=== PATIENT | male | born 1940 | race Caucasian/White ===

== ENCOUNTER 2020-08-21 15:44 | Emergency (ER) | payer OTHER ==
--- OUTSIDE RECORDS SUMMARY | 2020-08-21 15:48 | XMS REPORT | Continuity of Care Document ---
:1940 Author Organization [facility] t Address [address] [place] [address] Care Team Providers Name Role Phone Devon Zeuselybella Primary Care Physician CHAPO VALENTINO Attending Clinician Unavailable CHAPO VALENTINO Admitting Clinician Unavailable Payers Payer Name Policy Type Policy Effective Date Expiration Date Sour ce Number CIGNA MEDICARECIGNA [id number] 2019 MD [facility] MEDICARE [id number] are Problems Condition Condition Condition Status Onset Resolution Last Treating Co mments Source Name Details Category Date Date Treatment Clinician Date Essential Essential Disease Active 2016-[address] [facility] hypertensi hypertensi 04-15 Jazz kes - on on 00:00: Medical 00 [place] 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[address] [facility] [address] diabetes diabetes 08 kes - mellitus mellitus 00:00: Medica l without without 00 Center complicati complicati on on Acute Acute Disease Active 2016-[address] [facility] [address] postoperat postoperat 08 Jazz kes - pepper pain pepper pain 00:00: Medica l 00 Center Status Status Disease Active 2016-[address] [facility] [address] post post 04-14 kes - cardiac cardiac 00:00: Medical surgery surgery 00 Center Acute Acute Disease Active 2016-[address] [facility] pulmonary pulmonary 04-14 [facility] - insufficie insufficie 00:00: Il dical ncy ncy 00 Center following following thoracic thoracic surgery surgery Hypertensi Hypertensi Disease Active 2016-[address] ve urgency ve urgency 04-14 Jazz kes - 00:00: Medical 00 [place] Acute Acute Disease Active 2016-[address] [facility] [address] blood loss blood loss 04-14 Jazz kes - anemia anemia 00:00: Medical 00 [place] SIRS SIRS Disease Active 2016-[address] [facility] (systemic (systemic 04-14 Luke s - inflammato inflammato 00:00: Me dical ry ry 00 [place] response response syndrome) syndrome) Hypertensi Hypertensi Disease Active [facility] on on [facility] 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 - occlusion occlusion [facility] Diverticul Diverticul Disease Active [facility] itis itis [facility] Allergies, Adverse Reactions, Alerts This patient has no known allergies or adverse reactions. Family History Family Member Diagnosis Comments Start Date Stop Date Source Natural mother Diabetes [facility] Natural mother Heart disease [facility] Social History Social Habit Start Date Stop Date Quantity Comments Source Exposure to Not sure MD Vick SARS-CoV-2 (event) Sex Assigned At [facility] Tobacco use and 2017-02-13 2017-02-13 Never used [facility] - exposure 00:00:00 00:00:[address] [facility] Alcohol intake 2017-02-13 2017-02-13 [facility] - 00:[facility] 00:00:00 of alcohol [facility] (finding) Alcohol Comment 2017-01-17 2017-01-[address] Jazz kes - 00:00:00 00:00:00 [facility] History of 1993-04-[address] [facility] Josh [facility] - tobacco use 00[facility]00:00 [facility] Status Start Date Stop Date Source Former smoker 2017-02-13 00:00:00 2017-02-13 00:00:[address] [facility] [facility] - [facility] Medications Ordered Filled Start Stop Current Ordering Indication Dosage Frequency Signature Comments Components Source Medication Medication Date Date Medication? Clinician (SIG) Name Name metFORMIN 2016-04 Yes 1000mg Take 1,[address] (GLUCOPHAGE 1-13 mg by Lukes - ) 1000 MG 12:28: mouth 2 Medic al tablet 12 (two) Center times daily with breakfast and dinner. lisinopril 2016-04 Yes 10mg QD Take [address] (PRINIVIL,Z 1-13 by mouth Luke s - ESTRIL) 10 12:28: daily. Medic al MG tablet 12 [place] metoprolol 2016-04 Yes 25mg Q.5D Take [address] (LOPRESSOR) 1-13 by mouth 2 Jazz kes - 25 MG 12:28: (two) Medical tablet 12 times Center daily. cyanocobala 2016-04 Yes 1000ug QD Take 1,[address] min 1000 1-13 mcg by Lukes - MCG tablet 12:28: mouth Medica l 12 daily. [place] insulin 2016-04 Yes 14U Q.5D Inject 14 [facility] glargine 1-13 Units [facility]ukes - (LANTUS) 00:00: subcutaneo Med ical 100 unit/mL 00 usly 2 Center injection (two) times daily. Cyclobenzap Cyclobenzap Yes Tammie [address] rine HCl rine HCl [facility] to 2 hours [facility] - before [facility] Budesonide- Budesonide- Yes Tammie [address] Formoterol Formoterol [facility] - Fumarate Fumarate [facility] Tamsulosin Tamsulosin Yes Tammie [address] HCl HCl [facility] Gabapentin Gabapentin Yes Tammie [address] Millender [facility] Aspir-81 Aspir-81 Yes Tammie [address] [facility] - [facility] Clinics Accu-Chek Accu-Chek Yes Tammie as [facility] Tea Plus Tea Plus [facility] directed [facility] Atorvastati Atorvastati Yes Tammie [address] [facility] n Calcium n Calcium [facility] Insulin Insulin Yes Tammie as [facility] Glargine Glargine Millender directed [facility] - [facility] Diclofenac Diclofenac Yes Tammie [address] Sodium Sodium [place] [facility] - [facility] Clinics Empaglifloz Empaglifloz Yes Tammie [address] [facility] [place] [facility] - [facility] Phosphate Phosphate Yes Tammie not [facility] Enema Enema Millender defined [facility] Metformin Metformin Yes Tammie [address] HCl HCl [place] with a [facility] - meal [facility] Albuterol Albuterol Yes Tammie [address] Sulfate HFA Sulfate HFA Millender needed [facility] Procedures This patient has no known procedures. Encounters Start End Encounter Admission Attending Care Care Encounter Source Date/Time Date/Time Type Type Clinicians Facility Department ID 2020-07-05 2020-07-05 Outpatient [facility] [id number] [facility] 2020-01-14 2020-01-14 Outpatient [facility] [id number] [facility] 2020-01-11 2020-01-11 Outpatient [facility] [id number] [facility] 2020-01-08 2020-01-08 Outpatient [facility] [id number] [facility] 2019-06-30 2019-06-30 [facility] [id number] 09:40:00 09:40:00 [facility] 2019-05-21 2019-05-21 Outpatient Fariha Nieto [id number] 15:15:00 15:15:00 [facility] ent Clinics Results Test Description Test Time Test Comments Results Result Comments Source SURGICAL SPECIMENS 2018-01-11 11:00:00 --RUN DATE: 01/11/18 [facility] *LIVE* PAGE 1 RUN TIME: 1100 Specimen Inquiry RUN USER: INTERFACE --PATIENT: SHEFALI MA LOC: OzzySLAVA U #: [id number] AGE/SX: 77/M ROOM: RE01/09/18[facility] DR: Pedro May MD : 42 BED: DIS: STATUS: [place] TLOC: -- SPEC #: [id number] RECD: 01/09/18 STATUS: VERONICA JOSEPH #: [id number] EDI: 01/09/18 [facility] DR: Pedro May MD ENTERED: 01/11/18 SP TYPE: SURG SPEC OTHR DR: ORDERED: GM LEVEL 4 CODES: [id number] - PLEURAL FLUID PROCEDURES: GM LEVEL 4 (Incomplete) TISSUES: 1. PLEURAL FLUID, NOS - Pleural fluid, left, cytology FINAL DIAGNOSIS Pleural fluid, left, cytology, cytospin smears and cell block: No malignancy seen. GROSS AND MICROSCOPIC GROSS EXAMINATION: Received is 12 cc of red pleural fluid for cytologic examination. MICROSCOPIC EXAMINATION: The left pleural fluid cell block and cytospin smears reveal abundant amorphous material and scattered lymphoid cells with some reactive mesothelial cells. No evidence of malignancy is identified. POST-OP DIAGNOSIS Left pleural effusion PRE-OP DIAGNOSIS Left pleural effusion -- Signed SIGNATURE ON FILE Margaret Rodrigues MD 01/11/18 1100 --- END OF REPORT POCT-GLUCOSE METER 2017-02-18 08:13:00 Test Item Value Reference Range Interpretation Comme nts POC-GLUCOSE METER ([facility] (test 334 mg/dL 70-110 H Notified SHENA TAYLOR/TESTED AT [facility] code = 1538) [address] [facility] [place] [address] [id number] 06:53:00 Test Item Value Reference Range Interpretation Comments PHOSPHORUS (BEAKER) (test code = 3.2 mg/dL 2.3-4.7 604) [id number] 06:53:00 Test Item Value Reference Range Interpretation Comments MAGNESIUM (BEAKER) (test code = 1.6 mg/dL 1.6-2.6 627) BASIC METABOLIC [id number] 06:53:00 Test Item Value Reference Range Interpretation Comments SODIUM (BEAKER) 138 meq/L 136-145 (test code = 381) POTASSIUM (BEAKER) 4.2 meq/L 3.5-5.1 (test code = 379) CHLORIDE (BEAKER) 100 meq/L 98-107 (test code = 382) CO2 (BEAKER) (test 30 meq/L 22-29 H code = 355) BLOOD UREA NITROGEN 25 mg/dL 7-21 H (BEAKER) (test code = 354) CREATININE (BEAKER) 1.07 mg/dL 0.57-1.25 (test code = 358) GLUCOSE RANDOM 186 mg/dL 70-105 H (BEAKER) (test code = 652) CALCIUM (BEAKER) 9.8 mg/dL 8.4-10.2 (test code = 697) EGFR (BEAKER) (test 67 mL/min/1.73 ESTIMA IDALIA GFR IS code = 1092) sq m NOT ACCURATE CREATININE CLEARANCE IN PREDICTING GLOMERULAR FILTRATION RATE . ESTIMATED GFR I S NOT APPLICABLE FOR DIALYSIS PATIEN TS. CALCIUM, [id number] 06:41:00 Test Item Value Reference Range Interpretation Comments CALCIUM IONIZED (BEAKER) (test 1.17 mmol/L 1.12-1.27 code = 698) PH, BLOOD (BEAKER) (test code = 7.35 1810) CBC W/PLT COUNT & AUTO [id number] 06:23:00 Test Item Value Reference Range Interpretation Comments WHITE BLOOD CELL COUNT (BEAKER) 7.9 K/ L 3.5-10.5 (test code = 775) RED BLOOD CELL COUNT (BEAKER) 3.35 M/ L 4.63-6.08 L (test code = 761) HEMOGLOBIN (BEAKER) (test code = 9.2 GM/DL 13.7-17.5 L 410) HEMATOCRIT (BEAKER) (test code = 29.2 % 40.1-51.0 L 411) MEAN CORPUSCULAR VOLUME (BEAKER) 87.2 fL 79.0-92.2 (test code = 753) MEAN CORPUSCULAR HEMOGLOBIN 27.5 pg 25.7-32.2 (BEAKER) (test code = 751) MEAN CORPUSCULAR HEMOGLOBIN CONC 31.5 GM/DL 32.3-36.5 L (BEAKER) (test code = 752) RED CELL DISTRIBUTION WIDTH 12.9 % 11.6-14.4 (BEAKER) (test code = 412) PLATELET COUNT (BEAKER) (test 333 K/CU MM 150-450 code = 756) MEAN PLATELET VOLUME (BEAKER) 9.4 fL 9.4-12.4 (test code = 754) NUCLEATED RED BLOOD CELLS 0 /100 WBC 0-0 (BEAKER) (test code = 413) NEUTROPHILS RELATIVE PERCENT 60 % (BEAKER) (test code = 429) LYMPHOCYTES RELATIVE PERCENT 24 % (BEAKER) (test code = 430) MONOCYTES RELATIVE PERCENT 12 % (BEAKER) (test code = 431) EOSINOPHILS RELATIVE PERCENT 3 % (BEAKER) (test code = 432) BASOPHILS RELATIVE PERCENT 1 % (BEAKER) (test code = 437) NEUTROPHILS ABSOLUTE COUNT 4.74 K/ L 1.78-5.38 (BEAKER) (test code = 670) LYMPHOCYTES ABSOLUTE COUNT 1.90 K/ L 1.32-3.57 (BEAKER) (test code = 414) MONOCYTES ABSOLUTE COUNT (BEAKER) 0.91 K/ L 0.30-0.82 H (test code = 415) EOSINOPHILS ABSOLUTE COUNT 0.22 K/ L 0.04-0.54 (BEAKER) (test code = 416) BASOPHILS ABSOLUTE COUNT (BEAKER) 0.07 K/ L 0.01-0.08 (test code = 417) IMMATURE GRANULOCYTES-RELATIVE 1 % 0-1 PERCENT (BEAKER) (test code = 2801) POCT-GLUCOSE [id number] 22:13:00 Test Item Value Reference Range Interpretation Comments POC-GLUCOSE METER 290 mg/dL 70-[address] [facility] [facility] (test code = GEOVANNY Ca [facility] 1538) [address] POCT-GLUCOSE [id number] 17:29:00 Test Item Value Reference Range Interpretation Comments POC-GLUCOSE METER 276 mg/dL 70-[address] [facility] 6720 [facility] (test code = GEOVANNY Ca [facility] 1538) [address] POCT-GLUCOSE [id number] 12:39:00 Test Item Value Reference Range Interpretation Comments POC-GLUCOSE METER 259 mg/dL 70-[address] [facility] 6720 (BEAKER) (test code = [place] 1538) [address] POCT-GLUCOSE [id number] 08:24:00 Test Item Value Reference Range Interpretation Comments POC-GLUCOSE METER 298 mg/dL 70-[address] [facility] 6720 (BEAKER) (test code = GEOVANNY Ca [facility] 1538) [address] [id number] 07:50:00 Test Item Value Reference Range Interpretation Comments PHOSPHORUS (BEAKER) (test code = 3.8 mg/dL 2.3-4.7 604) [id number] 07:50:00 Test Item Value Reference Range Interpretation Comments MAGNESIUM (BEAKER) (test code = 1.6 mg/dL 1.6-2.6 627) BASIC METABOLIC [id number] 07:50:00 Test Item Value Reference Range Interpretation Comments SODIUM (BEAKER) 141 meq/L 136-145 (test code = 381) POTASSIUM (BEAKER) 3.9 meq/L 3.5-5.1 (test code = 379) CHLORIDE (BEAKER) 100 meq/L 98-107 (test code = 382) CO2 (BEAKER) (test 29 meq/L 22-29 code = 355) BLOOD UREA NITROGEN 26 mg/dL 7-21 H (BEAKER) (test code = 354) CREATININE (BEAKER) 1.13 mg/dL 0.57-1.25 (test code = 358) GLUCOSE RANDOM 159 mg/dL 70-105 H (BEAKER) (test code = 652) CALCIUM (BEAKER) 9.7 mg/dL 8.4-10.2 (test code = 697) EGFR (BEAKER) (test 63 mL/min/1.73 ESTIMA IDALIA GFR IS code = 1092) sq m NOT ACCURATE CREATININE CLEARANCE IN PREDICTING GLOMERULAR FILTRATION RATE . ESTIMATED GFR I S NOT APPLICABLE FOR DIALYSIS PATIEN TS. CALCIUM, [id number] 07:29:00 Test Item Value Reference Range Interpretation Comments CALCIUM IONIZED (BEAKER) (test 1.15 mmol/L 1.12-1.27 code = 698) PH, BLOOD (BEAKER) (test code = 7.32 1810) CBC W/PLT COUNT & AUTO [id number] 07:28:00 Test Item Value Reference Range Interpretation Comments WHITE BLOOD CELL COUNT (BEAKER) 6.4 K/ L 3.5-10.5 (test code = 775) RED BLOOD CELL COUNT (BEAKER) 3.26 M/ L 4.63-6.08 L (test code = 761) HEMOGLOBIN (BEAKER) (test code = 9.1 GM/DL 13.7-17.5 L 410) HEMATOCRIT (BEAKER) (test code = 28.8 % 40.1-51.0 L 411) MEAN CORPUSCULAR VOLUME (BEAKER) 88.3 fL 79.0-92.2 (test code = 753) MEAN CORPUSCULAR HEMOGLOBIN 27.9 pg 25.7-32.2 (BEAKER) (test code = 751) MEAN CORPUSCULAR HEMOGLOBIN CONC 31.6 GM/DL 32.3-36.5 L (BEAKER) (test code = 752) RED CELL DISTRIBUTION WIDTH 13.2 % 11.6-14.4 (BEAKER) (test code = 412) PLATELET COUNT (BEAKER) (test 320 K/CU MM 150-450 code = 756) MEAN PLATELET VOLUME (BEAKER) 9.6 fL 9.4-12.4 (test code = 754) NUCLEATED RED BLOOD CELLS 0 /100 WBC 0-0 (BEAKER) (test code = 413) NEUTROPHILS RELATIVE PERCENT 53 % (BEAKER) (test code = 429) LYMPHOCYTES RELATIVE PERCENT 31 % (BEAKER) (test code = 430) MONOCYTES RELATIVE PERCENT 12 % (BEAKER) (test code = 431) EOSINOPHILS RELATIVE PERCENT 4 % (BEAKER) (test code = 432) BASOPHILS RELATIVE PERCENT 1 % (BEAKER) (test code = 437) NEUTROPHILS ABSOLUTE COUNT 3.42 K/ L 1.78-5.38 (BEAKER) (test code = 670) LYMPHOCYTES ABSOLUTE COUNT 1.97 K/ L 1.32-3.57 (BEAKER) (test code = 414) MONOCYTES ABSOLUTE COUNT (BEAKER) 0.74 K/ L 0.30-0.82 (test code = 415) EOSINOPHILS ABSOLUTE COUNT 0.24 K/ L 0.04-0.54 (BEAKER) (test code = 416) BASOPHILS ABSOLUTE COUNT (BEAKER) 0.05 K/ L 0.01-0.08 (test code = 417) IMMATURE GRANULOCYTES-RELATIVE 0 % 0-1 PERCENT (BEAKER) (test code = 2801) POCT-GLUCOSE [id number] 22:18:00 Test Item Value Reference Range Interpretation Comments POC-GLUCOSE METER 209 mg/dL 70-110 H TESTED AT [place] [address] (BEAKER) (test code = GEOVANNY Ca [facility] 1538) [address] POCT-GLUCOSE [id number] 16:58:00 Test Item Value Reference Range Interpretation Comments POC-GLUCOSE METER 205 mg/dL 70-110 H TESTED AT [place] [address] (BEAKER) (test code = DIGNANM Roby [facility] 1538) [address] POCT-GLUCOSE [id number] 12:47:00 Test Item Value Reference Range Interpretation Comments POC-GLUCOSE METER 330 mg/dL 70-110 H Notified R Justine TAYLOR/TESTED (BEAKER) (test code = AT [address] 1538) [facility] [address] POCT-GLUCOSE [id number] 08:52:00 Test Item Value Reference Range Interpretation Comments POC-GLUCOSE METER 290 mg/dL 70-110 H TESTED AT [place] [address] (BEAKER) (test code = BANNER Roby [facility] 1538) [address] [id number] 07:17:00 Test Item Value Reference Range Interpretation Comments PHOSPHORUS (BEAKER) (test code = 3.6 mg/dL 2.3-4.7 604) [id number] 07:17:00 Test Item Value Reference Range Interpretation Comments MAGNESIUM (BEAKER) (test code = 1.6 mg/dL 1.6-2.6 627) BASIC METABOLIC [id number] 07:17:00 Test Item Value Reference Range Interpretation Comments SODIUM (BEAKER) 138 meq/L 136-145 (test code = 381) POTASSIUM (BEAKER) 4.3 meq/L 3.5-5.1 (test code = 379) CHLORIDE (BEAKER) 101 meq/L 98-107 (test code = 382) CO2 (BEAKER) (test 28 meq/L 22-29 code = 355) BLOOD UREA NITROGEN 28 mg/dL 7-21 H (BEAKER) (test code = 354) CREATININE (BEAKER) 1.05 mg/dL 0.57-1.25 (test code = 358) GLUCOSE RANDOM 182 mg/dL 70-105 H (BEAKER) (test code = 652) CALCIUM (BEAKER) 10.0 mg/dL 8.4-10.2 (test code = 697) EGFR (BEAKER) (test 69 mL/min/1.73 ESTIMA IDALIA GFR IS code = 1092) sq m NOT ACCURATE CREATININE CLEARANCE IN PREDICTING GLOMERULAR FILTRATION RATE . ESTIMATED GFR I S NOT APPLICABLE FOR DIALYSIS PATIEN TS. CBC W/PLT COUNT & AUTO [id number] 07:11:00 Test Item Value Reference Range Interpretation Comments WHITE BLOOD CELL COUNT (BEAKER) 7.0 K/ L 3.5-10.5 (test code = 775) RED BLOOD CELL COUNT (BEAKER) 3.17 M/ L 4.63-6.08 L (test code = 761) HEMOGLOBIN (BEAKER) (test code = 8.9 GM/DL 13.7-17.5 L 410) HEMATOCRIT (BEAKER) (test code = 27.8 % 40.1-51.0 L 411) MEAN CORPUSCULAR VOLUME (BEAKER) 87.7 fL 79.0-92.2 (test code = 753) MEAN CORPUSCULAR HEMOGLOBIN 28.1 pg 25.7-32.2 (BEAKER) (test code = 751) MEAN CORPUSCULAR HEMOGLOBIN CONC 32.0 GM/DL 32.3-36.5 L (BEAKER) (test code = 752) RED CELL DISTRIBUTION WIDTH 13.1 % 11.6-14.4 (BEAKER) (test code = 412) PLATELET COUNT (BEAKER) (test 265 K/CU MM 150-450 code = 756) MEAN PLATELET VOLUME (BEAKER) 9.6 fL 9.4-12.4 (test code = 754) NUCLEATED RED BLOOD CELLS 0 /100 WBC 0-0 (BEAKER) (test code = 413) NEUTROPHILS RELATIVE PERCENT 65 % (BEAKER) (test code = 429) LYMPHOCYTES RELATIVE PERCENT 19 % (BEAKER) (test code = 430) MONOCYTES RELATIVE PERCENT 12 % (BEAKER) (test code = 431) EOSINOPHILS RELATIVE PERCENT 3 % (BEAKER) (test code = 432) BASOPHILS RELATIVE PERCENT 1 % (BEAKER) (test code = 437) NEUTROPHILS ABSOLUTE COUNT 4.50 K/ L 1.78-5.38 (BEAKER) (test code = 670) LYMPHOCYTES ABSOLUTE COUNT 1.34 K/ L 1.32-3.57 (BEAKER) (test code = 414) MONOCYTES ABSOLUTE COUNT (BEAKER) 0.86 K/ L 0.30-0.82 H (test code = 415) EOSINOPHILS ABSOLUTE COUNT 0.19 K/ L 0.04-0.54 (BEAKER) (test code = 416) BASOPHILS ABSOLUTE COUNT (BEAKER) 0.04 K/ L 0.01-0.08 (test code = 417) IMMATURE GRANULOCYTES-RELATIVE 0 % 0-1 PERCENT (BEAKER) (test code = 2801) CALCIUM, [id number] 07:10:00 Test Item Value Reference Range Interpretation Comments CALCIUM IONIZED (BEAKER) (test 1.14 mmol/L 1.12-1.27 code = 698) PH, BLOOD (BEAKER) (test code = 7.33 1810) POCT-GLUCOSE [id number] 22:05:00 Test Item Value Reference Range Interpretation Comments POC-GLUCOSE METER 208 mg/dL 70-110 H TESTED AT [place] [address] [facility] (test code = [place] Roby [facility] 1538) [address] POCT-GLUCOSE [id number] 16:47:00 Test Item Value Reference Range Interpretation Comments POC-GLUCOSE METER 285 mg/dL 70-110 H TESTED AT [place] [address] (BEAKER) (test code = [facility] 1538) [address] POCT-GLUCOSE [id number] 13:03:00 Test Item Value Reference Range Interpretation Comments POC-GLUCOSE METER 265 mg/dL 70-110 H TESTED AT [place] [address] (BEAKER) (test code = [facility] 1538) [address] POCT-GLUCOSE [id number] 08:19:00 Test Item Value Reference Range Interpretation Comments POC-GLUCOSE METER 188 mg/dL 70-[address] [facility] 6720 (BEAKER) (test code = [facility] 1538) [address] CALCIUM, [id number] 07:58:00 Test Item Value Reference Range Interpretation Comments CALCIUM IONIZED (BEAKER) (test 1.26 mmol/L 1.12-1.27 code = 698) PH, BLOOD (BEAKER) (test code = 7.29 1810) [id number] 06:44:00 Test Item Value Reference Range Interpretation Comments PHOSPHORUS (BEAKER) (test code = 3.7 mg/dL 2.3-4.7 604) [id number] 06:44:00 Test Item Value Reference Range Interpretation Comments MAGNESIUM (BEAKER) (test code = 2.0 mg/dL 1.6-2.6 627) BASIC METABOLIC [id number] 06:44:00 Test Item Value Reference Range Interpretation Comments SODIUM (BEAKER) 137 meq/L 136-145 (test code = 381) POTASSIUM (BEAKER) 4.0 meq/L 3.5-5.1 (test code = 379) CHLORIDE (BEAKER) 100 meq/L 98-107 (test code = 382) CO2 (BEAKER) (test 26 meq/L 22-29 code = 355) BLOOD UREA NITROGEN 31 mg/dL 7-21 H (BEAKER) (test code = 354) CREATININE (BEAKER) 1.35 mg/dL 0.57-1.25 H (test code = 358) GLUCOSE RANDOM 186 mg/dL 70-105 H (BEAKER) (test code = 652) CALCIUM (BEAKER) 10.2 mg/dL 8.4-10.2 (test code = 697) EGFR (BEAKER) (test 52 mL/min/1.73 ESTIMA IDALIA GFR IS code = 1092) sq m NOT ACCURATE CREATININE CLEARANCE IN PREDICTING GLOMERULAR FILTRATION RATE . ESTIMATED GFR I S NOT APPLICABLE FOR DIALYSIS PATIEN TS. CBC W/PLT COUNT & AUTO [id number] 06:22:00 Test Item Value Reference Range Interpretation Comments WHITE BLOOD CELL COUNT (BEAKER) 10.1 K/ L 3.5-10.5 (test code = 775) RED BLOOD CELL COUNT (BEAKER) 3.40 M/ L 4.63-6.08 L (test code = 761) HEMOGLOBIN (BEAKER) (test code = 9.6 GM/DL 13.7-17.5 L 410) HEMATOCRIT (BEAKER) (test code = 30.3 % 40.1-51.0 L 411) MEAN CORPUSCULAR VOLUME (BEAKER) 89.1 fL 79.0-92.2 (test code = 753) MEAN CORPUSCULAR HEMOGLOBIN 28.2 pg 25.7-32.2 (BEAKER) (test code = 751) MEAN CORPUSCULAR HEMOGLOBIN CONC 31.7 GM/DL 32.3-36.5 L (BEAKER) (test code = 752) RED CELL DISTRIBUTION WIDTH 13.3 % 11.6-14.4 (BEAKER) (test code = 412) PLATELET COUNT (BEAKER) (test 250 K/CU MM 150-450 code = 756) MEAN PLATELET VOLUME (BEAKER) 10.0 fL 9.4-12.4 (test code = 754) NUCLEATED RED BLOOD CELLS 0 /100 WBC 0-0 (BEAKER) (test code = 413) NEUTROPHILS RELATIVE PERCENT 67 % (BEAKER) (test code = 429) LYMPHOCYTES RELATIVE PERCENT 20 % (BEAKER) (test code = 430) MONOCYTES RELATIVE PERCENT 9 % (BEAKER) (test code = 431) EOSINOPHILS RELATIVE PERCENT 2 % (BEAKER) (test code = 432) BASOPHILS RELATIVE PERCENT 1 % (BEAKER) (test code = 437) NEUTROPHILS ABSOLUTE COUNT 6.77 K/ L 1.78-5.38 H (BEAKER) (test code = 670) LYMPHOCYTES ABSOLUTE COUNT 2.05 K/ L 1.32-3.57 (BEAKER) (test code = 414) MONOCYTES ABSOLUTE COUNT (BEAKER) 0.94 K/ L 0.30-0.82 H (test code = 415) EOSINOPHILS ABSOLUTE COUNT 0.22 K/ L 0.04-0.54 (BEAKER) (test code = 416) BASOPHILS ABSOLUTE COUNT (BEAKER) 0.05 K/ L 0.01-0.08 (test code = 417) IMMATURE GRANULOCYTES-RELATIVE 0 % 0-1 PERCENT (BEAKER) (test code = 2801) POCT-GLUCOSE [id number] 22:01:00 Test Item Value Reference Range Interpretation Comments POC-GLUCOSE METER 238 mg/dL 70-[address] [facility] 6720 (BEAKER) (test code = GEOVANNY MOLINA 1538) [address] POCT-GLUCOSE [id number] 17:09:00 Test Item Value Reference Range Interpretation Comments POC-GLUCOSE METER 167 mg/dL 70-110 H TESTED AT [place] [address] ([facility]) (test code = [place] 1538) [address] POCT-GLUCOSE [id number] 12:02:00 Test Item Value Reference Range Interpretation Comments POC-GLUCOSE METER 256 mg/dL 70-[address] [facility] [address] ([facility]) (test code = [place] 1538) [address] RAD, CHEST, 1 VIEW, NON [id number] 09:07:00Reason for exam:->post opShould this be performed at the bedside?->YesFINAL REPORT HISTORY : post op. Comparison: 02/13/2017 Comment: Single portable view of the chest was obtained. The cardiac silhouette size is enlarged. The patient is status post sternotomy. There is a tortuous/ectatic thoracic aorta with some widening of the mediastinum. Thereare some bibasilar likely pleural-based calcifications. No pneumothorax is seen. There is some bibasilar patchy airspace disease. There may be very small bilateral pleural effusions. There has been interval removal of the right-sided internal jugular venous catheter. Signed: Keivn Posadaseport Verified Date/Time: 02/14/2017 09:07:30 Reading Location: [facility] Diagnostic Imaging Reading Room - [place] [address] POCT-GLUCOSE [id number] 07:47:00 Test Item Value Reference Range Interpretation Comments POC-GLUCOSE METER 235 mg/dL 70-110 H TESTED AT [place] [address] ([facility]) (test code = [place] [facility] 1538) [address] CALCIUM, [id number] 05:43:00 Test Item Value Reference Range Interpretation Comments CALCIUM IONIZED ([facility]) (test 1.18 mmol/L 1.12-1.27 code = 698) PH, BLOOD ([facility]) (test code = 7.33 1810) [id number] 05:42:00 Test Item Value Reference Range Interpretation Comments PHOSPHORUS ([facility]) (test code = 2.4 mg/dL 2.3-4.7 604) [id number] 05:42:00 Test Item Value Reference Range Interpretation Comments MAGNESIUM (BEAKER) (test code = 1.9 mg/dL 1.6-2.6 627) BASIC METABOLIC [id number] 05:42:00 Test Item Value Reference Range Interpretation Comments SODIUM (BEAKER) 137 meq/L 136-145 (test code = 381) POTASSIUM (BEAKER) 4.6 meq/L 3.5-5.1 (test code = 379) CHLORIDE (BEAKER) 103 meq/L 98-107 (test code = 382) CO2 (BEAKER) (test 27 meq/L 22-29 code = 355) BLOOD UREA NITROGEN 19 mg/dL 7-21 (BEAKER) (test code = 354) CREATININE (BEAKER) 1.03 mg/dL 0.57-1.25 (test code = 358) GLUCOSE RANDOM 196 mg/dL 70-105 H (BEAKER) (test code = 652) CALCIUM (BEAKER) 9.5 mg/dL 8.4-10.2 (test code = 697) EGFR (BEAKER) (test 70 mL/min/1.73 ESTIMA IDALIA GFR IS code = 1092) sq m NOT ACCURATE CREATININE CLEARANCE IN PREDICTING GLOMERULAR FILTRATION RATE . ESTIMATED GFR I S NOT APPLICABLE FOR DIALYSIS PATIEN TS. CBC W/PLT COUNT & AUTO [id number] 05:16:00 Test Item Value Reference Range Interpretation Comments WHITE BLOOD CELL COUNT (BEAKER) 10.5 K/ L 3.5-10.5 (test code = 775) RED BLOOD CELL COUNT (BEAKER) 3.16 M/ L 4.63-6.08 L (test code = 761) HEMOGLOBIN (BEAKER) (test code = 9.1 GM/DL 13.7-17.5 L 410) HEMATOCRIT (BEAKER) (test code = 28.6 % 40.1-51.0 L 411) MEAN CORPUSCULAR VOLUME (BEAKER) 90.5 fL 79.0-92.2 (test code = 753) MEAN CORPUSCULAR HEMOGLOBIN 28.8 pg 25.7-32.2 (BEAKER) (test code = 751) MEAN CORPUSCULAR HEMOGLOBIN CONC 31.8 GM/DL 32.3-36.5 L (BEAKER) (test code = 752) RED CELL DISTRIBUTION WIDTH 13.4 % 11.6-14.4 (BEAKER) (test code = 412) PLATELET COUNT (BEAKER) (test 191 K/CU MM 150-450 code = 756) MEAN PLATELET VOLUME (BEAKER) 9.7 fL 9.4-12.4 (test code = 754) NUCLEATED RED BLOOD CELLS 0 /100 WBC 0-0 (BEAKER) (test code = 413) NEUTROPHILS RELATIVE PERCENT 74 % (BEAKER) (test code = 429) LYMPHOCYTES RELATIVE PERCENT 13 % (BEAKER) (test code = 430) MONOCYTES RELATIVE PERCENT 12 % (BEAKER) (test code = 431) EOSINOPHILS RELATIVE PERCENT 0 % (BEAKER) (test code = 432) BASOPHILS RELATIVE PERCENT 0 % (BEAKER) (test code = 437) NEUTROPHILS ABSOLUTE COUNT 7.74 K/ L 1.78-5.38 H (BEAKER) (test code = 670) LYMPHOCYTES ABSOLUTE COUNT 1.41 K/ L 1.32-3.57 (BEAKER) (test code = 414) MONOCYTES ABSOLUTE COUNT (BEAKER) 1.22 K/ L 0.30-0.82 H (test code = 415) EOSINOPHILS ABSOLUTE COUNT 0.04 K/ L 0.04-0.54 (BEAKER) (test code = 416) BASOPHILS ABSOLUTE COUNT (BEAKER) 0.04 K/ L 0.01-0.08 (test code = 417) IMMATURE GRANULOCYTES-RELATIVE 1 % 0-1 PERCENT (BEAKER) (test code = 2801) POCT-GLUCOSE [id number] 22:20:00 Test Item Value Reference Range Interpretation Comments POC-GLUCOSE METER 276 mg/dL 70-[address] [facility] [address] ([facility]) (test code = [place] [facility] 1538) [id number] POCT-GLUCOSE [id number] 16:45:00 Test Item Value Reference Range Interpretation Comments POC-GLUCOSE METER 226 mg/dL 70-[address] [facility] [address] ([facility]) (test code = [facility] 1538) [address] RAD, CHEST, 1 VIEW, NON [id number] 09:10:00while patient is intubated or has chest tubes.Reason for exam:->Acute pulmonary insufficiencyShould this be performed at the bedside?->YesFINAL REPORT HISTORY : Acute pulmonary insufficiency. Comparison: 02/12/2017 Comment: Single portable view of the chest was obtained. The cardiac silhouette size is enlarged. There has been interval removal of the endotracheal and nasogastric tubes. The remainder of the support lines and tubes are otherwise unchanged. No pneumothorax is seen. There is some pulmonary venous congestion with possible edema. There is some patchy bibasilar airspace disease which may represent atelectasis. Pneumonitis cannot be excluded. There are some bibasilar likely pleural-based calcifications.Signed: Kevin Posadaseport Verified Date/Time: 02/13/2017 09:10:34 Reading Location: [facility] Diagnostic Imaging Reading Room - [place] [address] POCT-GLUCOSE [id number] 09:00:00 Test Item Value Reference Range Interpretation Comments POC-GLUCOSE METER 138 mg/dL 70-110 H TESTED AT [place] [address] ([facility]) (test code = [place] [facility] 1538) [address] POCT-GLUCOSE [id number] 08:59:00 Test Item Value Reference Range Interpretation Comments POC-GLUCOSE METER 137 mg/dL 70-110 H TESTED AT [place] [address] ([facility] (test code = [facility] 1538) [address] CBC W/PLT COUNT & AUTO [id number] 03:48:00 Test Item Value Reference Range Interpretation Comments WHITE BLOOD CELL COUNT (BEAKER) 9.8 K/ L 3.5-10.5 (test code = 775) RED BLOOD CELL COUNT (BEAKER) 3.53 M/ L 4.63-6.08 L (test code = 761) HEMOGLOBIN (BEAKER) (test code = 10.0 GM/DL 13.7-17.5 L 410) HEMATOCRIT (BEAKER) (test code = 30.6 % 40.1-51.0 L 411) MEAN CORPUSCULAR VOLUME (BEAKER) 86.7 fL 79.0-92.2 (test code = 753) MEAN CORPUSCULAR HEMOGLOBIN 28.3 pg 25.7-32.2 (BEAKER) (test code = 751) MEAN CORPUSCULAR HEMOGLOBIN CONC 32.7 GM/DL 32.3-36.5 (BEAKER) (test code = 752) RED CELL DISTRIBUTION WIDTH 13.6 % 11.6-14.4 (BEAKER) (test code = 412) PLATELET COUNT (BEAKER) (test 209 K/CU MM 150-450 code = 756) MEAN PLATELET VOLUME (BEAKER) 9.3 fL 9.4-12.4 L (test code = 754) NUCLEATED RED BLOOD CELLS 0 /100 WBC 0-0 (BEAKER) (test code = 413) NEUTROPHILS RELATIVE PERCENT 80 % (BEAKER) (test code = 429) LYMPHOCYTES RELATIVE PERCENT 7 % (BEAKER) (test code = 430) MONOCYTES RELATIVE PERCENT 12 % (BEAKER) (test code = 431) EOSINOPHILS RELATIVE PERCENT 0 % (BEAKER) (test code = 432) BASOPHILS RELATIVE PERCENT 0 % (BEAKER) (test code = 437) NEUTROPHILS ABSOLUTE COUNT 7.87 K/ L 1.78-5.38 H (BEAKER) (test code = 670) LYMPHOCYTES ABSOLUTE COUNT 0.68 K/ L 1.32-3.57 L (BEAKER) (test code = 414) MONOCYTES ABSOLUTE COUNT (BEAKER) 1.17 K/ L 0.30-0.82 H (test code = 415) EOSINOPHILS ABSOLUTE COUNT 0.00 K/ L 0.04-0.54 L (BEAKER) (test code = 416) BASOPHILS ABSOLUTE COUNT (BEAKER) 0.01 K/ L 0.01-0.08 (test code = 417) IMMATURE GRANULOCYTES-RELATIVE 1 % 0-1 PERCENT (BEAKER) (test code = 2801) [id number] 03:42:00 Test Item Value Reference Range Interpretation Comments MAGNESIUM (BEAKER) (test code = 1.8 mg/dL 1.6-2.6 627) BASIC METABOLIC [id number] 03:42:00 Test Item Value Reference Range Interpretation Comments SODIUM (BEAKER) 140 meq/L 136-145 (test code = 381) POTASSIUM (BEAKER) 4.2 meq/L 3.5-5.1 (test code = 379) CHLORIDE (BEAKER) 107 meq/L 98-107 (test code = 382) CO2 (BEAKER) (test 24 meq/L 22-29 code = 355) BLOOD UREA NITROGEN 16 mg/dL 7-21 (BEAKER) (test code = 354) CREATININE (BEAKER) 0.98 mg/dL 0.57-1.25 (test code = 358) GLUCOSE RANDOM 152 mg/dL 70-105 H (BEAKER) (test code = 652) CALCIUM (BEAKER) 9.2 mg/dL 8.4-10.2 (test code = 697) EGFR (BEAKER) (test 75 mL/min/1.73 ESTIMA IDALIA GFR IS code = 1092) sq m NOT ACCURATE CREATININE CLEARANCE IN PREDICTING GLOMERULAR FILTRATION RATE . ESTIMATED GFR I S NOT APPLICABLE FOR DIALYSIS PATIEN TS. LACTIC ACID, ARTERIAL, WHOLE [id number] 03:39:00 Test Item Value Reference Range Interpretation Comments LACTATE BLOOD ARTERIAL (2) 0.9 mmol/L 0.5-2.2 (BEAKER) (test code = 2874) Effective 08/10/2015: Units/Reference Range ChangeNew: 0.5-2.2 mmol/L Previous: 5-20 mg/dLCALCIUM, [id number] 03:33:00 Test Item Value Reference Range Interpretation Comments CALCIUM IONIZED (BEAKER) (test 1.18 mmol/L 1.12-1.27 code = 698) PH, BLOOD (BEAKER) (test code = 7.42 1810) POCT-GLUCOSE [id number] 01:42:00 Test Item Value Reference Range Interpretation Comments POC-GLUCOSE METER 145 mg/dL 70-[address] [facility] 67 (BEAKER) (test code = [place] [facility] 1538) [address] POCT-GLUCOSE [id number] 23:41:00 Test Item Value Reference Range Interpretation Comments POC-GLUCOSE METER 135 mg/dL 70-[address] [facility] 6720 (BEAKER) (test code = [place] [facility] 1538) [address] [id number] 21:30:00 Test Item Value Reference Range Interpretation Comments MAGNESIUM (BEAKER) (test code = 1.5 mg/dL 1.6-2.6 L 627) Check Serum Magnesium level 2 hours after IV magnesium replacement.BASIC METABOLIC [id number] 20:16:00 Test Item Value Reference Range Interpretation Comments SODIUM (BEAKER) 139 meq/L 136-145 (test code = 381) POTASSIUM (BEAKER) 4.4 meq/L 3.5-5.1 (test code = 379) CHLORIDE (BEAKER) 108 meq/L 98-107 H (test code = 382) CO2 (BEAKER) (test 22 meq/L 22-29 code = 355) BLOOD UREA NITROGEN 18 mg/dL 7-21 (BEAKER) (test code = 354) CREATININE (BEAKER) 1.04 mg/dL 0.57-1.25 (test code = 358) GLUCOSE RANDOM 223 mg/dL 70-105 H (BEAKER) (test code = 652) CALCIUM (BEAKER) 9.2 mg/dL 8.4-10.2 (test code = 697) EGFR (BEAKER) (test 70 mL/min/1.73 ESTIMA IDALIA GFR IS code = 1092) sq m NOT ACCURATE CREATININE CLEARANCE IN PREDICTING GLOMERULAR FILTRATION RATE . ESTIMATED GFR I S NOT APPLICABLE FOR DIALYSIS PATIEN TS. [id number] 18:21:00 Test Item Value Reference Range Interpretation Comments MAGNESIUM (BEAKER) (test code = 1.5 mg/dL 1.6-2.6 L 627) SODIUM NA-STAT [id number] 17:26:00 Test Item Value Reference Range Interpretation Comments SODIUM (BEAKER) (test code = 381) 137 meq/L 135-148 POTASSIUM-STAT [id number] 17:26:00 Test Item Value Reference Range Interpretation Comments POTASSIUM (BEAKER) (test code = 4.1 meq/L 3.6-5.5 379) BLOOD GAS, [id number] 17:26:00 Test Item Value Reference Range Interpretation Comments PH ARTERIAL (BEAKER) (test code = 7.40 7.35-7.45 383) PCO2 ARTERIAL (BEAKER) (test code 38 mmHg 35-45 = 384) PO2 ARTERIAL (BEAKER) (test code 122 mmHg 80-90 H = 385) O2 SATURATION ARTERIAL (BEAKER) 98.4 % 96.0-97.0 H (test code = 386) HCO3 ARTERIAL (BEAKER) (test code 23 mmol/L 21-29 = 388) BASE EXCESS ARTERIAL (BEAKER) -1.7 mmol/L -2.0-3.0 (test code = 387) PATIENT TEMPERATURE (BEAKER) 37.0 C (test code = 1818) FIO2 (BEAKER) (test code = 1819) 40.0 % GLUCOSE-STAT [id number] 17:26:00 Test Item Value Reference Range Interpretation Comments GLUCOSE RANDOM (BEAKER) (test code 218 mg/dL 70-110 H = 652) HGB/HCT (H&H) - STAT [id number] 17:26:00 Test Item Value Reference Range Interpretation Comments HEMOGLOBIN (BEAKER) (test code = 11.0 g/dL 13.0-16.8 L 410) HEMATOCRIT (BEAKER) (test code = 32.0 % 40.0-50.0 L 411) RAD, CHEST, 1 VIEW, NON [id number] 15:02:00Reason for exam:->Acute pulmonary insufficiency on MVShould this be performed at the bedside?->Yes FINAL REPORT COMPARISON: 01/17/2017 TECHNIQUE: Single view of the chest FINDINGS: Patient has presumably undergone recent cardiothoracic surgery. There is mild prominence of interstitial markings. No overt consolidation, edema, or large pleural effusion. No gross pneumothorax. Tr eliot pleural effusions are suspected. Multiple support lines and tubes are in place. An endotracheal tube projects approximately 1.6 cm above the conor. A nasogastric tube projects below the diaphragm.Mediastinal drain and left-sided chest tube noted. A right internal jugular central line seen with tip in the SVC. Signed: Troy Parker MDReport Verified Date/Time: 02/12/2017 15:02:08 Reading Location: [facility] Radiology Reading Room CBC W/PLT COUNT & AUTO DIFFERENTIAL 2017-02-12 14:17:00 Test Item Value Reference Range Interpretation Comments WHITE BLOOD CELL COUNT (BEAKER) 12.5 K/ L 3.5-10.5 H (test code = 775) RED BLOOD CELL COUNT (BEAKER) 3.38 M/ L 4.63-6.08 L (test code = 761) HEMOGLOBIN (BEAKER) (test code = 9.6 GM/DL 13.7-17.5 L 410) HEMATOCRIT (BEAKER) (test code = 29.3 % 40.1-51.0 L 411) MEAN CORPUSCULAR VOLUME (BEAKER) 86.7 fL 79.0-92.2 (test code = 753) MEAN CORPUSCULAR HEMOGLOBIN 28.4 pg 25.7-32.2 (BEAKER) (test code = 751) MEAN CORPUSCULAR HEMOGLOBIN CONC 32.8 GM/DL 32.3-36.5 (BEAKER) (test code = 752) RED CELL DISTRIBUTION WIDTH 13.3 % 11.6-14.4 (BEAKER) (test code = 412) PLATELET COUNT (BEAKER) (test 207 K/CU MM 150-450 code = 756) MEAN PLATELET VOLUME (BEAKER) 9.3 fL 9.4-12.4 L (test code = 754) NUCLEATED RED BLOOD CELLS 0 /100 WBC 0-0 (BEAKER) (test code = 413) NEUTROPHILS RELATIVE PERCENT 79 % (BEAKER) (test code = 429) LYMPHOCYTES RELATIVE PERCENT 11 % (BEAKER) (test code = 430) MONOCYTES RELATIVE PERCENT 9 % (BEAKER) (test code = 431) EOSINOPHILS RELATIVE PERCENT 1 % (BEAKER) (test code = 432) BASOPHILS RELATIVE PERCENT 0 % (BEAKER) (test code = 437) NEUTROPHILS ABSOLUTE COUNT 9.85 K/ L 1.78-5.38 H (BEAKER) (test code = 670) LYMPHOCYTES ABSOLUTE COUNT 1.32 K/ L 1.32-3.57 (BEAKER) (test code = 414) MONOCYTES ABSOLUTE COUNT (BEAKER) 1.07 K/ L 0.30-0.82 H (test code = 415) EOSINOPHILS ABSOLUTE COUNT 0.06 K/ L 0.04-0.54 (BEAKER) (test code = 416) BASOPHILS ABSOLUTE COUNT (BEAKER) 0.04 K/ L 0.01-0.08 (test code = 417) IMMATURE GRANULOCYTES-RELATIVE 1 % 0-1 PERCENT (BEAKER) (test code = 2801) [id number] 14:14:00 Test Item Value Reference Range Interpretation Comments PHOSPHORUS (BEAKER) (test code = 3.5 mg/dL 2.3-4.7 604) [id number] 14:14:00 Test Item Value Reference Range Interpretation Comments GLUCOSE RANDOM (BEAKER) (test code 237 mg/dL 70-105 H = 652) LACTIC ACID, ARTERIAL, WHOLE [id number] 14:07:00 Test Item Value Reference Range Interpretation Comments LACTATE BLOOD ARTERIAL (2) 1.9 mmol/L 0.5-2.2 (BEAKER) (test code = 2874) Effective 08/10/2015: Units/Reference Range ChangeNew: 0.5-2.2 mmol/L Previous: 5-20 mg/dLSODIUM NA-STAT [id number] 13:43:00 Test Item Value Reference Range Interpretation Comments SODIUM (BEAKER) (test code = 381) 136 meq/L 135-148 POTASSIUM-STAT [id number] 13:43:00 Test Item Value Reference Range Interpretation Comments POTASSIUM (BEAKER) (test code = 4.8 meq/L 3.6-5.5 379) CALCIUM, [id number] 13:43:00 Test Item Value Reference Range Interpretation Comments CALCIUM IONIZED (BEAKER) (test 1.21 mmol/L 1.12-1.27 code = 698) PH, BLOOD (BEAKER) (test code = 7.35 1810) BLOOD GAS, [id number] 13:43:00 Test Item Value Reference Range Interpretation Comments PH ARTERIAL (BEAKER) (test code = 7.36 7.35-7.45 383) PCO2 ARTERIAL (BEAKER) (test code 40 mmHg 35-45 = 384) PO2 ARTERIAL (BEAKER) (test code 230 mmHg 80-90 H = 385) O2 SATURATION ARTERIAL (BEAKER) 99.5 % 96.0-97.0 H (test code = 386) HCO3 ARTERIAL (BEAKER) (test code 22 mmol/L 21-29 = 388) BASE EXCESS ARTERIAL (BEAKER) -3.5 mmol/L -2.0-3.0 L (test code = 387) PATIENT TEMPERATURE (BEAKER) 36.6 C (test code = 1818) FIO2 (BEAKER) (test code = 1819) 60.0 % GLUCOSE-STAT [id number] 13:43:00 Test Item Value Reference Range Interpretation Comments GLUCOSE RANDOM (BEAKER) (test code 229 mg/dL 70-110 H = 652) HGB/HCT (H&H) - STAT [id number] 13:43:00 Test Item Value Reference Range Interpretation Comments HEMOGLOBIN (BEAKER) (test code = 10.3 g/dL 13.0-16.8 L 410) HEMATOCRIT ([facility]) (test code = 30.0 % 40.0-50.0 L 411) OXYGEN SATURATION, [id number] 13:42:00 Test Item Value Reference Range Interpretation Comments O2 SATURATION (MEASURED) (BEAKER) 77.1 % (test code = 1455) From distal port of IJ central venous catheterTHROMBOELASTOGRAPH (TEG)2017-02-12 12:33:00 Test Item Value Reference Range Interpretation Comments TEG ACTIVATED CLOTTING TIME 6.8 minutes 4.0-7.0 (BEAKER) (test code = 1407) TEG FIBRINOGEN ACTIVITY (BEAKER) 73.9 degrees 61.0-73.0 H (test code = 1408) TEG PLT. AGGREGATION (BEAKER) 68.1 MM 55.0-65.0 H (test code = 1409) TGH ACTIVATED CLOTTING TIME 7.1 minutes 4.0-7.0 H (BEAKER) (test code = 1411) TGH FIBRINOGEN ACTIVITY (BEAKER) 74.4 degrees 61.0-73.0 H (test code = 1412) TGH PLT. AGGREGATION (BEAKER) 64.3 MM 55.0-65.0 (test code = 1413) PLATELET [id number] 12:31:00 Test Item Value Reference Range Interpretation Comments PLATELET COUNT ([facility]) (test 272 K/CU MM 150-450 code = 756) [id number] 12:02:00 Test Item Value Reference Range Interpretation Comments ACTIVATED CLOTTING TIME 120 sec TEST ED AT [place] [address] ([facility]) (test code = [place] [address]) [address] [id number] 12:02:00 Test Item Value Reference Range Interpretation Comments ACTIVATED CLOTTING TIME 445 sec TEST ED AT [place] [address] ([facility]) (test code = [place] [address]) [id number] 12:02:00 Test Item Value Reference Range Interpretation Comments ACTIVATED CLOTTING TIME 450 sec TEST ED AT [place] [address] ([facility]) (test code = [place] [address]) [id number] 12:02:00 Test Item Value Reference Range Interpretation Comments ACTIVATED CLOTTING TIME 533 sec TEST ED AT [place] [address] (BEAKER) (test code = [place] [address]) [address] [id number] 11:54:00 Test Item Value Reference Range Interpretation Comments FIBRINOGEN LEVEL (BEAKER) (test 271 mg/dl 225-434 code = 658) [id number] 11:54:00 Test Item Value Reference Range Interpretation Comments PARTIAL THROMBOPLASTIN TIME 30.7 seconds 22.5-36.0 (BEAKER) (test code = 760) PROTHROMBIN [id number] 11:53:00 Test Item Value Reference Range Interpretation Comments PROTIME (BEAKER) (test code = 18.4 seconds 11.7-14.7 H 759) INR (BEAKER) (test code = 370) 1.5 <=5.9 RECOMMENDED COUMADIN/WARFARIN INR THERAPY RANGESSTANDARD DOSE: 2.0 - 3.0 Includes: PROPHYLAXIS forvenous thrombosis, systemic embolization; TREATMENT for venous thrombosis and/or pulmonary embolus.HIGH RISK: Target INR is 2.5-3.5 for patients with mechanical heart valves.BLOOD GAS, [id number] 11:41:00 Test Item Value Reference Range Interpretation Comments PH ARTERIAL (BEAKER) (test code = 7.35 7.35-7.45 383) PCO2 ARTERIAL (BEAKER) (test code 42 mmHg 35-45 = 384) PO2 ARTERIAL (BEAKER) (test code 161 mmHg 80-90 H = 385) O2 SATURATION ARTERIAL (BEAKER) 99.0 % 96.0-97.0 H (test code = 386) HCO3 ARTERIAL (BEAKER) (test code 23 mmol/L 21-29 = 388) BASE EXCESS ARTERIAL (BEAKER) -3.2 mmol/L -2.0-3.0 L (test code = 387) PATIENT TEMPERATURE (BEAKER) 36.0 C (test code = 1818) FIO2 (BEAKER) (test code = 1819) 40.0 % GLUCOSE-STAT [id number] 11:41:00 Test Item Value Reference Range Interpretation Comments GLUCOSE RANDOM (BEAKER) (test code 230 mg/dL 70-110 H = 652) HGB/HCT (H&H) - STAT [id number] 11:41:00 Test Item Value Reference Range Interpretation Comments HEMOGLOBIN (BEAKER) (test code = 9.0 g/dL 13.0-16.8 L 410) HEMATOCRIT (BEAKER) (test code = 26.0 % 40.0-50.0 L 411) CALCIUM, [id number] 11:40:00 Test Item Value Reference Range Interpretation Comments CALCIUM IONIZED (BEAKER) (test 1.08 mmol/L 1.12-1.27 L code = 698) PH, BLOOD (BEAKER) (test code = 7.33 1810) SODIUM NA-STAT [id number] 11:39:00 Test Item Value Reference Range Interpretation Comments SODIUM (BEAKER) (test code = 381) 137 meq/L 135-148 POTASSIUM-STAT [id number] 11:39:00 Test Item Value Reference Range Interpretation Comments POTASSIUM (BEAKER) (test code = 4.3 meq/L 3.6-5.5 379) SODIUM NA-STAT [id number] 11:04:00 Test Item Value Reference Range Interpretation Comments SODIUM (BEAKER) (test code = 381) 134 meq/L 135-148 L POTASSIUM-STAT [id number] 11:04:00 Test Item Value Reference Range Interpretation Comments POTASSIUM (BEAKER) (test code = 5.9 meq/L 3.6-5.5 H 379) HGB/HCT (H&H) - STAT [id number] 11:04:00 Test Item Value Reference Range Interpretation Comments HEMOGLOBIN (BEAKER) (test code = 8.5 g/dL 13.0-16.8 L 410) HEMATOCRIT (BEAKER) (test code = 25.0 % 40.0-50.0 L 411) BLOOD GAS, [id number] 11:03:00 Test Item Value Reference Range Interpretation Comments PH ARTERIAL (BEAKER) (test code = 7.36 7.35-7.45 383) PCO2 ARTERIAL (BEAKER) (test code 46 mmHg 35-45 H = 384) PO2 ARTERIAL (BEAKER) (test code = 250 mmHg 80-90 H 385) O2 SATURATION ARTERIAL (BEAKER) 99.5 % 96.0-97.0 H (test code = 386) HCO3 ARTERIAL (BEAKER) (test code 26 mmol/L 21-29 = 388) BASE EXCESS ARTERIAL (BEAKER) 0.1 mmol/L -2.0-3.0 (test code = 387) PATIENT TEMPERATURE (BEAKER) (test 36.5 C code = 1818) FIO2 (BEAKER) (test code = 1819) 70.0 % GLUCOSE-STAT [id number] 11:03:00 Test Item Value Reference Range Interpretation Comments GLUCOSE RANDOM (BEAKER) (test code 203 mg/dL 70-110 H = 652) POTASSIUM-STAT [id number] 10:44:00 Test Item Value Reference Range Interpretation Comments POTASSIUM (BEAKER) (test code = 6.2 meq/L 3.6-5.5 HH 379) BLOOD GAS, [id number] 10:44:00 Test Item Value Reference Range Interpretation Comments PH ARTERIAL (BEAKER) (test code = 7.41 7.35-7.45 383) PCO2 ARTERIAL (BEAKER) (test code 39 mmHg 35-45 = 384) PO2 ARTERIAL (BEAKER) (test code 294 mmHg 80-90 H = 385) O2 SATURATION ARTERIAL (BEAKER) 99.7 % 96.0-97.0 H (test code = 386) HCO3 ARTERIAL (BEAKER) (test code 26 mmol/L 21-29 = 388) BASE EXCESS ARTERIAL (BEAKER) -0.6 mmol/L -2.0-3.0 (test code = 387) PATIENT TEMPERATURE (BEAKER) 30.0 C (test code = 1818) FIO2 (BEAKER) (test code = 1819) 60.0 % GLUCOSE-STAT [id number] 10:44:00 Test Item Value Reference Range Interpretation Comments GLUCOSE RANDOM (BEAKER) (test code 208 mg/dL 70-110 H = 652) SODIUM NA-STAT [id number] 10:44:00 Test Item Value Reference Range Interpretation Comments SODIUM (BEAKER) (test code = 381) 131 meq/L 135-148 L HGB/HCT (H&H) - STAT [id number] 10:44:00 Test Item Value Reference Range Interpretation Comments HEMOGLOBIN (BEAKER) (test code = 8.4 g/dL 13.0-16.8 L 410) HEMATOCRIT (BEAKER) (test code = 25.0 % 40.0-50.0 L 411) BLOOD GAS, [id number] 10:34:00 Test Item Value Reference Range Interpretation Comments PH ARTERIAL (BEAKER) (test code = 7.34 7.35-7.45 L 383) PCO2 ARTERIAL (BEAKER) (test code 50 mmHg 35-45 H = 384) PO2 ARTERIAL (BEAKER) (test code = 344 mmHg 80-90 H 385) O2 SATURATION ARTERIAL (BEAKER) 99.7 % 96.0-97.0 H (test code = 386) HCO3 ARTERIAL (BEAKER) (test code 27 mmol/L 21-29 = 388) BASE EXCESS ARTERIAL (BEAKER) 0.2 mmol/L -2.0-3.0 (test code = 387) PATIENT TEMPERATURE (BEAKER) (test 34.0 C code = 1818) FIO2 (BEAKER) (test code = 1819) 80.0 % SODIUM NA-STAT [id number] 10:34:00 Test Item Value Reference Range Interpretation Comments SODIUM (BEAKER) (test code = 381) 132 meq/L 135-148 L POTASSIUM-STAT [id number] 10:34:00 Test Item Value Reference Range Interpretation Comments POTASSIUM (BEAKER) (test code = 5.6 meq/L 3.6-5.5 H 379) GLUCOSE-STAT [id number] 10:34:00 Test Item Value Reference Range Interpretation Comments GLUCOSE RANDOM (BEAKER) (test code 192 mg/dL 70-110 H = 652) HGB/HCT (H&H) - STAT [id number] 10:34:00 Test Item Value Reference Range Interpretation Comments HEMOGLOBIN (BEAKER) (test code = 8.6 g/dL 13.0-16.8 L 410) HEMATOCRIT (BEAKER) (test code = 25.0 % 40.0-50.0 L 411) BLOOD GAS, [id number] 10:33:00 Test Item Value Reference Range Interpretation Comments PH VENOUS (BEAKER) (test code = 7.31 7.32-7.42 L 701) PCO2 VENOUS (BEAKER) (test code = 55 mmHg 41-51 H 755) PO2 VENOUS (BEAKER) (test code = 35 mmHg 25-40 702) O2 SATURATION VENOUS (BEAKER) 70.4 % 40.0-70.0 H (test code = 703) HCO3 VENOUS (BEAKER) (test code = 28 mmol/L 21-29 705) BASE EXCESS VENOUS (BEAKER) (test 0.8 mmol/L -2.0-3.0 code = 704) PATIENT TEMPERATURE (BEAKER) (test 34.0 C code = 1818) FIO2 (BEAKER) (test code = 1819) 80.0 % CALCIUM, [id number] 08:54:00 Test Item Value Reference Range Interpretation Comments CALCIUM IONIZED (BEAKER) (test 1.13 mmol/L 1.12-1.27 code = 698) PH, BLOOD (BEAKER) (test code = 7.39 1810) BLOOD GAS, [id number] 08:54:00 Test Item Value Reference Range Interpretation Comments PH ARTERIAL (BEAKER) (test code = 7.41 7.35-7.45 383) PCO2 ARTERIAL (BEAKER) (test code 37 mmHg 35-45 = 384) PO2 ARTERIAL (BEAKER) (test code 259 mmHg 80-90 H = 385) O2 SATURATION ARTERIAL (BEAKER) 99.6 % 96.0-97.0 H (test code = 386) HCO3 ARTERIAL (BEAKER) (test code 23 mmol/L 21-29 = 388) BASE EXCESS ARTERIAL (BEAKER) -1.4 mmol/L -2.0-3.0 (test code = 387) PATIENT TEMPERATURE (BEAKER) 35.6 C (test code = 1818) FIO2 (BEAKER) (test code = 1819) 60.0 % GLUCOSE-STAT [id number] 08:54:00 Test Item Value Reference Range Interpretation Comments GLUCOSE RANDOM (BEAKER) (test code 177 mg/dL 70-110 H = 652) SODIUM NA-STAT [id number] 08:53:00 Test Item Value Reference Range Interpretation Comments SODIUM (BEAKER) (test code = 381) 135 meq/L 135-148 POTASSIUM-STAT [id number] 08:53:00 Test Item Value Reference Range Interpretation Comments POTASSIUM (BEAKER) (test code = 4.6 meq/L 3.6-5.5 379) HGB/HCT (H&H) - STAT [id number] 08:53:00 Test Item Value Reference Range Interpretation Comments HEMOGLOBIN (BEAKER) (test code = 14.1 g/dL 13.0-16.8 410) HEMATOCRIT (BEAKER) (test code = 41.0 % 40.0-50.0 411) POCT-GLUCOSE [id number] 07:12:00 Test Item Value Reference Range Interpretation Comments POC-GLUCOSE METER 178 mg/dL 70-[address] [facility] 6720 (BEAKER) (test code = [place] 1538) [address] HEMOGLOBIN [id number] 12:53:00 Test Item Value Reference Range Interpretation Comments HEMOGLOBIN A1C (BEAKER) (test code = 7.8 % 4.3-6.1 H 368) RAD, CHEST, 2 [id number] 11:13:00Reason for exam:->cadFINAL REPORT Two views chest Discussion: Heart size upper limits of normal. A1 cm subtle rounded opacity is seen right low chest, probably a nipple shadow. Lungs otherwise clear. No effusion or pneumothorax. Bones and soft tissues unremarkable. IMPRESSIONS: Probable right low chest nipple shadow. Recommend short-term chest x-ray follow-up with nipple marker. Signed: Evy Lin Verified Date/Time: 01/17/2017 11:13:00 Reading Location: [facility] Radiology Reading Room BASIC METABOLIC [id number] 09:44:00 Test Item Value Reference Range Interpretation Comments SODIUM (BEAKER) 138 meq/L 136-145 (test code = 381) POTASSIUM (BEAKER) 4.6 meq/L 3.5-5.1 (test code = 379) CHLORIDE (BEAKER) 106 meq/L 98-107 (test code = 382) CO2 (BEAKER) (test 23 meq/L 22-29 code = 355) BLOOD UREA NITROGEN 16 mg/dL 7-21 (BEAKER) (test code = 354) CREATININE (BEAKER) 1.16 mg/dL 0.57-1.25 (test code = 358) GLUCOSE RANDOM 89 mg/dL 70-105 (BEAKER) (test code = 652) CALCIUM (BEAKER) 9.6 mg/dL 8.4-10.2 (test code = 697) EGFR (BEAKER) (test 61 mL/min/1.73 ESTIMA IDALIA GFR IS code = 1092) sq m NOT ACCURATE CREATININE CLEARANCE IN PREDICTING GLOMERULAR FILTRATION RATE . ESTIMATED GFR I S NOT APPLICABLE FOR DIALYSIS PATIEN TS. PROTHROMBIN [id number] 09:43:00 Test Item Value Reference Range Interpretation Comments PROTIME (BEAKER) (test code = 13.6 seconds 11.7-14.7 759) INR (BEAKER) (test code = 370) 1.1 <=5.9 RECOMMENDED COUMADIN/WARFARIN INR THERAPY RANGESSTANDARD DOSE: 2.0 - 3.0 Includes: PROPHYLAXIS forvenous thrombosis, systemic embolization; TREATMENT for venous thrombosis and/or pulmonary embolus.HIGH RISK: Target INR is 2.5-3.5 for patients with mechanical heart valves.CBC W/PLT COUNT & AUTO DIFFERENTIAL 2017-01-17 09:22:00 Test Item Value Reference Range Interpretation Comments WHITE BLOOD CELL COUNT (BEAKER) 5.8 K/ L 3.5-10.5 (test code = 775) RED BLOOD CELL COUNT (BEAKER) 4.73 M/ L 4.63-6.08 (test code = 761) HEMOGLOBIN (BEAKER) (test code = 13.2 GM/DL 13.7-17.5 L 410) HEMATOCRIT (BEAKER) (test code = 40.5 % 40.1-51.0 411) MEAN CORPUSCULAR VOLUME (BEAKER) 85.6 fL 79.0-92.2 (test code = 753) MEAN CORPUSCULAR HEMOGLOBIN 27.9 pg 25.7-32.2 (BEAKER) (test code = 751) MEAN CORPUSCULAR HEMOGLOBIN CONC 32.6 GM/DL 32.3-36.5 (BEAKER) (test code = 752) RED CELL DISTRIBUTION WIDTH 13.5 % 11.6-14.4 (BEAKER) (test code = 412) PLATELET COUNT (BEAKER) (test 254 K/CU MM 150-450 code = 756) MEAN PLATELET VOLUME (BEAKER) 9.2 fL 9.4-12.4 L (test code = 754) NUCLEATED RED BLOOD CELLS 0 /100 WBC 0-0 (BEAKER) (test code = 413) NEUTROPHILS RELATIVE PERCENT 50 % (BEAKER) (test code = 429) LYMPHOCYTES RELATIVE PERCENT 33 % (BEAKER) (test code = 430) MONOCYTES RELATIVE PERCENT 10 % (BEAKER) (test code = 431) EOSINOPHILS RELATIVE PERCENT 5 % (BEAKER) (test code = 432) BASOPHILS RELATIVE PERCENT 1 % (BEAKER) (test code = 437) NEUTROPHILS ABSOLUTE COUNT 2.88 K/ L 1.78-5.38 (BEAKER) (test code = 670) LYMPHOCYTES ABSOLUTE COUNT 1.90 K/ L 1.32-3.57 (BEAKER) (test code = 414) MONOCYTES ABSOLUTE COUNT (BEAKER) 0.60 K/ L 0.30-0.82 (test code = 415) EOSINOPHILS ABSOLUTE COUNT 0.30 K/ L 0.04-0.54 (BEAKER) (test code = 416) BASOPHILS ABSOLUTE COUNT (BEAKER) 0.08 K/ L 0.01-0.08 (test code = 417) IMMATURE GRANULOCYTES-RELATIVE 0 % 0-1 PERCENT (BEAKER) (test code = 9761)
[2020-08-21 16:21] LABS: Absolute Lymphocytes (CBC) 1.3 K/uL (0.7-4.9); Basophils % 0.9 % (0-1.3); Hematocrit 32.2 % (39.6-49.0); Lymphocytes % 21.9 % (15.3-44.8); RBC Red Blood Cell Count 3.89 M/uL (4.33-5.43)
[2020-08-21 16:40] LABS: ALT/SGPT 104 U/L (12-78); Albumin 2.5 g/dL (3.4-5.0); Alkaline Phosphatase 219 U/L (45-117); BUN Blood Urea Nitrogen 19 mg/dL (7-18); Bicarbonate 23 mmol/L (21-32); Bilirubin Direct 1.3 mg/dL (0-0.2); Bilirubin Total 1.8 mg/dL (0.2-1.0); Glucose Level 97 mg/dL (74-106); NT PRO-BNP 288 pg/mL (<450); Protein, Total 6.2 g/dL (6.4-8.2); Sodium Level 134 mmol/L (136-145); Troponin (Emerg Dept Use Only) < 0.02 ng/mL (0.0-0.045)
[2020-08-21 16:42] LABS: AST/SGOT 424 U/L (15-37); Magnesium 1.4 mg/dL (1.8-2.4)
[2020-08-21 16:43] LABS: Protime INR 1.81
[2020-08-21] MEDS ORDERED: NA CHLORIDE 0.9% 1,000 ML ONE ×2 (16:47→19:42)
[2020-08-21] MEDS ORDERED: KETOROLAC 30 MG/ML INJ ONE (17:02)
[2020-08-21 17:04] LABS: CKMB Creatine Kinase MB 1.8 ng/mL (0.3-3.6)
[2020-08-21] MEDS ORDERED: HYDROCODONE/APAP 10/325 TAB ONE (17:57)
--- NOTE | 2020-08-21 18:21 | EDPHYS ---
Physician Documentation [facility] Name: Selvin Ma Age: 79 yrs Sex: Male : 1940 Arrival Date: 08/21/2020 Time: 15:45 Bed 3 Private MD: ED Physician Chilango Ni HPI: 08/21 16:37 This 79 yrs old Male presents to ER via Wheelchair with complaints of ma2 Shortness Of Breath. 16:37 Onset: The symptoms/episode began/occurred gradually, 4 week(s) ago. Associated signs ma2 and symptoms: Pertinent negatives: productive cough, dizziness, hemoptysis, nausea, numbness in extremities. Severity of symptoms: At their worst the symptoms were mild in the emergency department the symptoms are unchanged. The patient has experienced similar episodes in the past. has bone cancer in process of seeing oncologist dr. herrera, here with low bp to 88/50 and weakness, low back pain and anorexia . Historical: - Allergies: 20:21 Morphine; ea - Home Meds: 17:52 Lantus 100 unit/mL Sub-Q soln [Active]; apixaban oral 5 mg oral [Active]; empagliflozin jd3 oral 25 oral [Active]; metoprolol tartrate 25 mg Oral tab [Active]; prednisone 5 mg Oral tab [Active]; abiraterone oral 250 mg oral [Active]; budesonide inhalation inhalation 2 puffs [Active]; cyanocobalamin (vitamin B-12) oral oral [Active]; 18:18 metformin 1,000 mg Oral tab [Active]; sennosides 8.6 mg oral tab [Active]; polyethylene jd3 glycol 3350 oral oral [Active]; docusate sodium 100 mg oral tab [Active]; atorvastatin 40 mg oral tab [Active]; tamsulosin 0.4 mg oral cp24 [Active]; - PMHx: 15:52 Arthritis; CAD; Diabetes - IDDM; Diverticulitis; Hernia; Hypertension; ruptured ca1 stomach; High Cholesterol; - PSHx: 15:52 Heart stents; heart cath; rupture stomach repair; ca1 - Immunization history:: Client reports receiving the 2nd dose of the Covid vaccine, Client reports receiving the 1st dose of the Covid vaccine, Pneumococcal vaccine is up to date, . - Social history:: Smoking status: Patient denies any tobacco usage or history of. Patient/guardian denies using alcohol, street drugs, The patient lives with family. - Family history:: not pertinent. ROS: 16:37 Constitutional: Negative for fever, chills, and weight loss. ma2 16:37 All other systems are negative. Exam: 16:37 Constitutional: This is a well developed, well nourished patient who is awake, alert, ma2 and in no acute distress. Head/Face: Normocephalic, atraumatic. Eyes: Pupils equal round and reactive to light, extra-ocular motions intact. Lids and lashes normal. Conjunctiva and sclera are non-icteric and not injected. Cornea within normal limits. Periorbital areas with no swelling, redness, or edema. ENT: Nares patent. No nasal discharge, no septal abnormalities noted. Tympanic membranes are normal and external auditory canals are clear. Oropharynx with no redness, swelling, or masses, exudates, or evidence of obstruction, uvula midline. Mucous membranes moist. Neck: Trachea midline, no thyromegaly or masses palpated, and no cervical lymphadenopathy. Supple, full range of motion without nuchal rigidity, or vertebral point tenderness. No Meningismus. Chest/axilla: Normal chest wall appearance and motion. Nontender with no deformity. No lesions are appreciated. Cardiovascular: Regular rate and rhythm with a normal S1 and S2. No gallops, murmurs, or rubs. Normal PMI, no JVD. No pulse deficits. Respiratory: Lungs have equal breath sounds bilaterally, clear to auscultation and percussion. No rales, rhonchi or wheezes noted. No increased work of breathing, no retractions or nasal flaring. Abdomen/GI: Soft, non-tender, with normal bowel sounds. No distension or tympany. No guarding or rebound. No evidence of tenderness throughout. Skin: Warm, dry with normal turgor. Normal color with no rashes, no lesions, and no evidence of cellulitis. MS/ Extremity: Pulses equal, no cyanosis. Neurovascular intact. Full, normal range of motion. Neuro: Awake and alert, GCS 15, oriented to person, place, time, and situation. Cranial nerves II-XII grossly intact. Motor strength 5/5 in all extremities. Sensory grossly intact. Cerebellar exam normal. Normal gait. Vital Signs: 15:48 BP 88 / 52; Pulse 100; Resp 16 S; Temp 97.1(TE); Pulse Ox 94% on R/A; Weight 92.99 kg ca1 (M); Height 5 ft. 10 in. (177.80 cm) (R); Pain 10/10; 16:50 BP 96 / 60; Pulse 102; Resp 18 S; Pulse Ox 98% on 2 lpm NC; jd3 17:44 BP 105 / 51; Pulse 100; Resp 16 S; Pulse Ox 98% on 2 lpm NC; jd3 19:20 BP 103 / 62; Pulse 107; Resp 18; Pulse Ox 99% on R/A; lp1 20:35 BP 97 / 51; Pulse 112; Resp 18; Pulse Ox 99% on R/A; Pain 8/10; lp1 21:26 BP 108 / 48; Pulse 99; Resp 18; Pulse Ox 97% on R/A; Pain 3/10; lp1 22:19 BP 108 / 55; Pulse 99; Resp 18; Temp 97.9(O); Pulse Ox 98% on R/A; lp1 23:00 BP 121 / 50; Pulse 98; Resp 18; Pulse Ox 99% on R/A; lp1 15:48 Body Mass Index 29.41 (92.99 kg, 177.80 cm) ca1 MDM: 16:08 Patient medically screened. ma2 16:37 Differential diagnosis: Anemia Anxiety Reaction pneumonia, reactive airway disease, ma2 dehydration vs anemia. 18:19 Antibiotic administration: The patient is discharged and will get outpatient ma2 antibiotics. Data reviewed: vital signs, nurses notes. 18:21 ED course: patient will need to be evaluated for need of vq scan. no emergent need to ma2 scan his chest as he is already on apixiban and his vs wnl at this time including O2 satts. 19:00 ED course: patient has sepsis and acute choledocholithiasis, discussed with dr. Jun mcdonald and lucian, they both recommends transfer as patient had prior incision and drainage of his right gall bladder. will initiate transfer for higher level of care. 22:02 ED course: Talked Dr. Parekh ( G. I. ) and Dr. Perry ( Gen. Surgery ) Dr. Yuan ( [facility] Hospitalist ) accepted transfer. 08/21 16:04 Order name: Basic Metabolic Panel; Complete Time: 17:19 co 08/21 16:04 Order name: CBC with Diff; Complete Time: 17:19 co 08/21 16:04 Order name: LFT's; Complete Time: 17:19 co 08/21 16:04 Order name: Magnesium; Complete Time: 17:19 co 08/21 16:04 Order name: NT PRO-BNP; Complete Time: 17:19 co 08/21 16:04 Order name: PT-INR; Complete Time: 17:19 co 08/21 16:04 Order name: Troponin (emerg Dept Use Only); Complete Time: 17:19 co 08/21 16:10 Order name: C-Reactive Protein [facility] 08/21 16:10 Order name: Amylase, Serum [facility] 08/21 16:10 Order name: Blood Culture Adult (2) [facility] 08/21 16:10 Order name: Ckmb [facility] 08/21 16:10 Order name: CPK [facility] 08/21 16:10 Order name: Lactate [facility] 08/21 16:10 Order name: Lipase [facility] 08/21 16:04 Order name: XRAY Chest (1 view); Complete Time: 19:20 co 08/21 16:10 Order name: Ptt, Activated; Complete Time: 17:19 [facility] 08/21 16:11 Order name: C-Reactive Protein; Complete Time: 17:19 [facility] 08/21 16:11 Order name: Amylase; Complete Time: 17:19 [facility] 08/21 16:11 Order name: Blood Culture [facility] 08/21 16:11 Order name: CKMB Creatine Kinase MB; Complete Time: 17:19 [facility] 08/21 16:11 Order name: Creatine Phosphokinase; Complete Time: 17:19 [facility] 08/21 16:11 Order name: Lactate; Complete Time: 18:02 [facility] 08/21 16:11 Order name: Lipase; Complete Time: 17:19 [facility] 08/21 17:21 Order name: US Abdomen Limited; Complete Time: 19:20 [facility] 08/21 20:29 Order name: SARS-COV-2 RT PCR; Complete Time: 20:51 [facility] 08/21 21:08 Order name: Lactate Sepsis 2 HR Follow-up; Complete Time: 21:23 [facility] 08/21 23:05 Order name: Glucose, Ancillary Testing [facility] 08/21 16:04 Order name: EKG; Complete Time: 16:05 co 08/21 16:04 Order name: Cardiac monitoring; Complete Time: 16:15 co 08/21 16:04 Order name: EKG - Nurse/Tech; Complete Time: 16:15 co 08/21 16:04 Order name: IV Saline Lock; Complete Time: 16:04 co 08/21 16:04 Order name: Labs collected and sent; Complete Time: 16:04 co 08/21 16:04 Order name: O2 Per Protocol; Complete Time: 16:05 co 08/21 16:04 Order name: O2 Sat Monitoring; Complete Time: 16:05 co 08/21 16:10 Order name: Accucheck; Complete Time: 16:15 ma2 08/21 16:10 Order name: IV Saline Lock - Large Bore; Complete Time: 16:15 ma2 Administered Medications: Discontinued: NS 0.9% 1000 ml IV at 125 ml/hr continuous 16:41 Drug: NS 0.9% 1000 ml Route: IV; Rate: 125 ml/hr; Site: right antecubital; jd3 19:33 Follow up: Rate change 125 ml/hr lp1 16:45 Drug: TORadol (ketorolac) 30 mg Route: IVP; Site: right antecubital; jd3 22:24 Follow up: Response: No adverse reaction ea 17:43 Drug: [place] (HYDROcodone-acetaminophen) 10 mg-325 mg 1 tabs Route: PO; jd3 22:24 Follow up: Response: No adverse reaction ea 18:43 CANCELLED (Duplicate Order): Rocephin (cefTRIAXone) 1 grams IV at calculated rate once; jd3 Given slow IV push per pharmacy instructions 18:50 Drug: Zosyn (piperacillin-tazobactam) 3.375 grams Route: IVPB; Infused Over: 60 mins; bp Site: right antecubital; 19:32 Follow up: IV Status: Completed infusion; IV Intake: 100ml lp1 19:18 Drug: NS 0.9% 1000 ml Route: IV; Rate: 1000 ml; Site: right antecubital; lp1 20:35 Follow up: IV Status: Completed infusion; IV Intake: 1000ml lp1 19:32 Drug: Magnesium Sulfate 2 grams Route: IVPB; Infused Over: 2 hrs; Site: right lp1 antecubital; 22:23 Follow up: IV Status: Completed infusion ea 20:12 Not Given (Other Intervention Used): morphine 2 mg IVP once; (PAIN>8) RASS on ADMN: ea Combtv4, Very Agttd3, Agttd2, Rstlss1, AlertClm0, Drwsy-1, LtSdtn-2, ModSdtn-3, DpSdtn-4, UnArsble-5 x2 20:25 Drug: Zofran (Ondansetron) 4 mg Route: IVP; Site: right antecubital; lp1 22:23 Follow up: Response: No adverse reaction ea 22:24 Follow up: Response: No adverse reaction ea 20:25 Drug: Demerol (meperidine) 25 mg Route: IVP; Site: right antecubital; lp1 22:23 Follow up: Response: No adverse reaction ea 21:23 Drug: NS 0.9% 500 ml {Note: vERBAL ORDER PER DR. NI.} Route: IV; Rate: bolus; Site: lp1 right antecubital; 22:23 Follow up: Response: No adverse reaction; IV Status: Completed infusion; IV Intake: ea 500ml 22:50 Drug: Pepcid (famotidine) 20 mg Route: IVP; Site: right antecubital; lp1 23:14 Follow up: Response: No adverse reaction lp1 23:00 Drug: D50W 25 ml Route: IVP; Site: right antecubital; lp1 23:14 Follow up: Response: No adverse reaction lp1 Disposition: 08/21/20 22:06 Transfer ordered to [facility]. Diagnosis is Acute cholecystitis. Elevated liver functions. Ca prostate with bone metastasis. - Reason for transfer: Higher level of care. - Accepting physician is Dr. Yuan. - Condition is Stable. - Problem is new. - Symptoms are unchanged. Signatures: Dispatcher [employer] EDChilango Bustos MD MD pkl Williams, Irene, RN RN iw Pena, Laura, RN RN lp1 Harry Plascencia, MANAGER [employer]-C MANAGER [employer]-Cla1 Georgina Galarza mt, Elena, RN RN ea Davies, Jonathon, RN RN jd3 Peltier, Brian, RN RN bp Alzahri, Mohammad, MD MD ma2 Maya Lockwood RN RN ca1 Corrections: (The following items were deleted from the chart) 18:43 18:21 cefTRIAXone [Rocephin (cefTRIAXone) 1 grams IV at calculated rate once; Given jd3 slow IV push per pharmacy instructions] ordered. ma2 19:00 18:20 Hospitalization Ordered by Phillip Denis MD for Observation. Preliminary ma2 diagnosis is Dehydration; Severe sepsis without septic shock. Bed requested for Telemetry/MedSurg (observation). Status is Observation. Condition is Stable. Problem is new. Symptoms are unchanged. ma2 19:38 18:05 CORONAVIRUS+MR.LAB.BRZ ordered. EDMS EDMS 20:21 15:52 Allergies: No Known Allergies; ca1 ea 23:17 22:06 08/21/2020 22:06 Transfer ordered to [facility]. lp1 Diagnosis is Acute cholecystitis. Elevated liver functions. Ca prostate with bone metastasis. Reason for transfer: Higher level of care. Accepting physician is Dr. Yuan. Condition is Stable. Problem is new. Symptoms are unchanged. pkl
--- NOTE | 2020-08-21 18:21 | ER ---
Nurse's Notes [facility] Name: Selvin Ma Age: 79 yrs Sex: Male : 1940 Arrival Date: 08/21/2020 Time: 15:45 Bed 3 Private MD: Diagnosis: Acute cholecystitis. Elevated liver functions. Ca prostate with bone metastasis Presentation: 08/21 15:48 Chief complaint: Patient states: i have bone cancer and i have been having SOB for ca1 couple weeks now, but it has just getting worse and worse. Also, reports low back pain. Coronavirus screen: Client denies travel out of the [place] in the last 14 days. shortness of breath, Client presents with at least one sign or symptom that may indicate coronavirus-19. Standard/surgical mask placed on the client. Provider contacted for isolation considerations. Ebola Screen: Patient negative for fever greater than or equal to 101.5 degrees Fahrenheit, and additional compatible Ebola Virus Disease symptoms Patient denies exposure to infectious person. Patient denies travel to an Ebola-affected area in the 21 days before illness onset. No symptoms or risks identified at this time. Initial Sepsis Screen: Does the patient meet any 2 criteria? No. Patient's initial sepsis screen is negative. Does the patient have a suspected source of infection? No. Patient's initial sepsis screen is negative. Risk Assessment: Do you want to hurt yourself or someone else? Patient reports no desire to harm self or others. Onset of symptoms was August 21, 2020. 15:48 Method Of Arrival: Wheelchair ca1 15:48 Acuity: MJ 2 ca1 Triage Assessment: 16:54 Respiratory: Onset: The symptoms/episode began/occurred gradually, the patient has mild jd3 shortness of breath. Historical: - Allergies: 20:21 Morphine; ea - Home Meds: 17:52 Lantus 100 unit/mL Sub-Q soln [Active]; apixaban oral 5 mg oral [Active]; empagliflozin jd3 oral 25 oral [Active]; metoprolol tartrate 25 mg Oral tab [Active]; prednisone 5 mg Oral tab [Active]; abiraterone oral 250 mg oral [Active]; budesonide inhalation inhalation 2 puffs [Active]; cyanocobalamin (vitamin B-12) oral oral [Active]; 18:18 metformin 1,000 mg Oral tab [Active]; sennosides 8.6 mg oral tab [Active]; polyethylene jd3 glycol 3350 oral oral [Active]; docusate sodium 100 mg oral tab [Active]; atorvastatin 40 mg oral tab [Active]; tamsulosin 0.4 mg oral cp24 [Active]; - PMHx: 15:52 Arthritis; CAD; Diabetes - IDDM; Diverticulitis; Hernia; Hypertension; ruptured ca1 stomach; High Cholesterol; - PSHx: 15:52 Heart stents; heart cath; rupture stomach repair; ca1 - Immunization history:: Client reports receiving the 2nd dose of the Covid vaccine, Client reports receiving the 1st dose of the Covid vaccine, Pneumococcal vaccine is up to date, . - Social history:: Smoking status: Patient denies any tobacco usage or history of. Patient/guardian denies using alcohol, street drugs, The patient lives with family. - Family history:: not pertinent. Screenin:54 Abuse screen: Denies threats or abuse. Nutritional screening: No deficits noted. jd3 Tuberculosis screening: No symptoms or risk factors identified. Fall Risk IV access (20 points). Ambulatory Aid- None/Bed Rest/Nurse Assist (0 pts). Gait- Weak (10 pts.). Mental Status- Oriented to own ability (0 pts). Total Teixeira Fall Scale indicates Low Risk Score (25-44 pts). Fall prevention measures have been instituted. Side Rails Up X 2 Placed close to Nursing Station Frequent Obs/Assesments occuring Family Present and informed to notify staff if they need to leave bedside. Assessment: 16:51 General: Appears in no apparent distress. uncomfortable, Behavior is calm, cooperative, jd3 appropriate for age. Pain: Complains of pain in low back area, left flank, right flank and abdomen Quality of pain is described as sharp. Neuro: Level of Consciousness is awake, alert, obeys commands, Oriented to person, place, time, situation. Cardiovascular: Capillary refill < 3 seconds Patient's skin is warm and dry. Rhythm is sinus tachycardia. Respiratory: Reports shortness of breath Airway is patent Respiratory effort is even, unlabored, Respiratory pattern is regular, symmetrical. GI: No signs and/or symptoms were reported involving the gastrointestinal system. : No signs and/or symptoms were reported regarding the genitourinary system. EENT: No signs and/or symptoms were reported regarding the EENT system. Derm: Skin is intact, Skin is dry, Skin is normal, Skin temperature is warm. Musculoskeletal: Circulation, motion, and sensation intact. Range of motion: intact in all extremities, Swelling present in left leg pt reports swelling is due to known blood clot that his doctors are watching. 17:44 Reassessment: Patient appears in no apparent distress at this time. Patient and/or jd3 family updated on plan of care and expected duration. Pain level reassessed. Patient is alert, oriented x 3, equal unlabored respirations, skin warm/dry/pink. 19:37 Reassessment: Patient appears in no apparent distress at this time. Patient aware of lp1 possible transfer, Dr. Gee at bedside to discuss care with patient and son. Pain: Complains of pain in low back area. Neuro: Level of Consciousness is awake, alert, obeys commands. Respiratory: Respiratory effort is even, unlabored. Derm: Skin is intact, Skin is dry, Skin is jaundiced. 20:15 Reassessment: Patient reports low back pain discomfort 8/10 on pain scale; patient lp1 assisted to bed from recliner for comfort; repositioned with assistance; Dr. gee notified of patient complaint of pain. 21:03 Reassessment: Patient and/or family updated on plan of care and expected duration. Pain ea level reassessed. Patient is alert, oriented x 3, equal unlabored respirations, skin warm/dry/pink. Patient states feeling better. 21:26 Reassessment: Patient reports back pain relief at this time; son at bedside, aware of lp1 continuing to attempt transfer. 22:22 Reassessment: Patient and/or family updated on plan of care and expected duration. Pain ea level reassessed. Patient is alert/active/playful, equal unlabored respirations, skin warm/dry/pink. 22:33 Reassessment: Report given to SHENA Solis for patient transfer to [facility] 15 lp1 tower 1510. 23:00 Reassessment: EMS at bedside for transfer. lp1 Vital Signs: 15:48 BP 88 / 52; Pulse 100; Resp 16 S; Temp 97.1(TE); Pulse Ox 94% on R/A; Weight 92.99 kg ca1 (M); Height 5 ft. 10 in. (177.80 cm) (R); Pain 10/10; 16:50 BP 96 / 60; Pulse 102; Resp 18 S; Pulse Ox 98% on 2 lpm NC; jd3 17:44 BP 105 / 51; Pulse 100; Resp 16 S; Pulse Ox 98% on 2 lpm NC; jd3 19:20 BP 103 / 62; Pulse 107; Resp 18; Pulse Ox 99% on R/A; lp1 20:35 BP 97 / 51; Pulse 112; Resp 18; Pulse Ox 99% on R/A; Pain 8/10; lp1 21:26 BP 108 / 48; Pulse 99; Resp 18; Pulse Ox 97% on R/A; Pain 3/10; lp1 22:19 BP 108 / 55; Pulse 99; Resp 18; Temp 97.9(O); Pulse Ox 98% on R/A; lp1 23:00 BP 121 / 50; Pulse 98; Resp 18; Pulse Ox 99% on R/A; lp1 15:48 Body Mass Index 29.41 (92.99 kg, 177.80 cm) ca1 ED Course: 15:45 Patient arrived in ED. as 15:51 Triage completed. ca1 15:52 Arm band placed on right wrist. ca1 16:03 Kristian Girard RN is Primary Nurse. jd3 16:03 Inserted saline lock: 20 gauge in right antecubital area, using aseptic technique. mt Blood collected. 16:08 Joanna Perez MD is Attending Physician. ma2 16:54 Patient has correct armband on for positive identification. Bed in low position. Call jd3 light in reach. Side rails up X2. Adult w/ patient. monitoring tech on. Pulse ox on. NIBP on. 17:16 XRAY Chest (1 view) In Process Unspecified. EDMS 18:20 Phillip Denis MD is Hospitalizing Provider. ma2 18:25 US Abdomen Limited In Process Unspecified. EDMS 19:16 Attending Physician role handed off by Joanna Perez MD pkl 19:16 Chilango Gee MD is Attending Physician. pkl 19:18 Primary Nurse role handed off by Kristian Girard, SHENA mw2 19:27 initiated a transfer with Rosette from [facility] Transfer Center. mw2 19:32 Jen Arroyo, RN is Primary Nurse. lp1 19:47 no capacity at [facility]. mw2 20:33 initiated transfer with Dayana from [facility]. mw2 20:36 [facility] denied due to no capacity. initiated a transfer with Edna from [address] Transfer [place]. 20:52 initiated a transfer with Annette from [facility] Transfer [place]. mw2 21:12 doc to doc with GI from [facility]. mw2 21:14 [facility] denied due to capacity. mw2 22:06 administrative approval given by Annette Ewing/ patient has been accepted to [address] [place] bed 1562/ Dr. Yuan accepted the patient in transfer/ report to be called to [phone]. 23:16 No provider procedures requiring assistance completed. Patient transferred, IV remains lp1 in place. Administered Medications: Discontinued: NS 0.9% 1000 ml IV at 125 ml/hr continuous 16:41 Drug: NS 0.9% 1000 ml Route: IV; Rate: 125 ml/hr; Site: right antecubital; jd3 19:33 Follow up: Rate change 125 ml/hr lp1 16:45 Drug: TORadol (ketorolac) 30 mg Route: IVP; Site: right antecubital; jd3 22:24 Follow up: Response: No adverse reaction ea 17:43 Drug: [place] (HYDROcodone-acetaminophen) 10 mg-325 mg 1 tabs Route: PO; jd3 22:24 Follow up: Response: No adverse reaction ea 18:43 CANCELLED (Duplicate Order): Rocephin (cefTRIAXone) 1 grams IV at calculated rate once; jd3 Given slow IV push per pharmacy instructions 18:50 Drug: Zosyn (piperacillin-tazobactam) 3.375 grams Route: IVPB; Infused Over: 60 mins; bp Site: right antecubital; 19:32 Follow up: IV Status: Completed infusion; IV Intake: 100ml lp1 19:18 Drug: NS 0.9% 1000 ml Route: IV; Rate: 1000 ml; Site: right antecubital; lp1 20:35 Follow up: IV Status: Completed infusion; IV Intake: 1000ml lp1 19:32 Drug: Magnesium Sulfate 2 grams Route: IVPB; Infused Over: 2 hrs; Site: right lp1 antecubital; 22:23 Follow up: IV Status: Completed infusion ea 20:12 Not Given (Other Intervention Used): morphine 2 mg IVP once; (PAIN>8) RASS on ADMN: ea Combtv4, Very Agttd3, Agttd2, Rstlss1, AlertClm0, Drwsy-1, LtSdtn-2, ModSdtn-3, DpSdtn-4, UnArsble-5 x2 20:25 Drug: Zofran (Ondansetron) 4 mg Route: IVP; Site: right antecubital; lp1 22:23 Follow up: Response: No adverse reaction ea 22:24 Follow up: Response: No adverse reaction ea 20:25 Drug: Demerol (meperidine) 25 mg Route: IVP; Site: right antecubital; lp1 22:23 Follow up: Response: No adverse reaction ea 21:23 Drug: NS 0.9% 500 ml {Note: vERBAL ORDER PER DR. GEE.} Route: IV; Rate: bolus; Site: lp1 right antecubital; 22:23 Follow up: Response: No adverse reaction; IV Status: Completed infusion; IV Intake: ea 500ml 22:50 Drug: Pepcid (famotidine) 20 mg Route: IVP; Site: right antecubital; lp1 23:14 Follow up: Response: No adverse reaction lp1 23:00 Drug: D50W 25 ml Route: IVP; Site: right antecubital; lp1 23:14 Follow up: Response: No adverse reaction lp1 Intake: 19:32 IV: 100ml; Total: 100ml. lp1 20:35 IV: 1000ml; Total: 1100ml. lp1 22:23 IV: 500ml; Total: 1600ml. ea Outcome: 18:20 Decision to Hospitalize by Provider. ma2 22:06 ER care complete, transfer ordered by . callie 23:16 Transferred by ground EMS to [facility], Transfer form completed. lp1 X-rays sent w/ patient. 23:16 Condition: stable 23:16 Instructed on the need for transfer. 23:17 Patient left the ED. lp1 Signatures: Dispatcher [employer] EDChilango Bustos MD MD pkl Martinez, Amelia as Pena, Jen, RN RN lp1 Georgina Galarza mt, Elena, RN RN ea Kristian Girard RN RN jd3 Peltier, Brian, RN RN bp Joanna Perez MD MD ms2 Neva Winkler 2 Maya Lockwood RN RN ca1 Corrections: (The following items were deleted from the chart) 17:44 16:50 BP 96 / 60; Pulse 102bpm; Resp 18bpm; Spontaneous; Pulse Ox 98% RA; jd3 jd3 17:48 16:51 Musculoskeletal: Circulation, motion, and sensation intact. Range of motion: jd3 intact in all extremities, jd3 20:21 15:52 Allergies: No Known Allergies; ca1 ea
--- NOTE | 2020-08-21 18:59 | RAD REPORT ---
EXAM DESCRIPTION: RAD - Chest Single View - 08/21/2020 5:17 pm CLINICAL HISTORY: SOB COMPARISON: December 2017 TECHNIQUE: AP portable chest image was obtained 08/21/2020 5:17 pm . FINDINGS: Lung volumes are low. Densely calcified pleural plaque upper left lung field. Lateral left base opacification is present. Dense diaphragmatic pleural plaquing. Heart and vasculature are paris l. No pneumothorax. Sternotomy wires are in place. No acute bony abnormality seen. No acute aortic fi ndings suspected. IMPRESSION: Small left pleural effusion decreased from 2018 imaging.
--- NOTE | 2020-08-21 19:03 | RAD REPORT ---
EXAM DESCRIPTION: US - Abdomen Exam Limited - 08/21/2020 6:25 pm CLINICAL HISTORY: ruq, elevated liver e COMPARISON: CT ABD PELVIS W CONTRAST dated 11/30/2013 FINDINGS: Several small shadowing mobile gallstones are seen within a moderate amount sludge in the gallbladder lumen. Gallbladder wall is slightly thickened. Trace amount of pericholecystic fluid iden tifiable. No common duct stone or biliary tree dilatation identified. IMPRESSION: Multi stone cholelithiasis, sludge, wall thickening and trace pericholecystic fluid. Findings are consistent with acute cholecystitis in the proper clinical setting. No duct stone or biliary tree dilatation.
[2020-08-21] MEDS ORDERED: Magnesium Sulfate 2gm IVPB 2 G/50 ML BAG IV ONE (19:10)
[2020-08-21] MEDS ORDERED: PIPER/TAZO/NS 3.375gm 3.375 GM/100 ML BAG ONE (19:11)
[2020-08-21] MEDS ORDERED: MORPHINE 2 MG/ML SYR ONE (20:25)
[2020-08-21] MEDS ORDERED: ONDANSETRON 4 MG/2 ML VIAL ONE ×2 (20:25→20:38)
[2020-08-21] MEDS ORDERED: MEPERIDINE HCL 25 MG/ML SYR ONE (20:38)
[2020-08-21] MEDS ORDERED: FAMOTIDINE 20 MG/2 ML VIAL IV ONE (23:07)
[2020-08-21] MEDS ORDERED: D50W 25 GM/50 ML SYRINGE IV ONE (23:18)
[2020-08-21 23:44] VITALS: TEMP 97.9
[2020-08-21 23:46] VITALS: BP 121/50; O2SAT 99
== END 2020-08-21 23:17 | disposition short-term general hospital (02) ==
LOC: ER 15:44
DX: K81.0 Acute cholecystitis (principal); R79.89 Other specified abnormal findings of blood chemistry; C61 Malignant neoplasm of prostate; C79.51 Secondary malignant neoplasm of bone; I10 Essential (primary) hypertension; E11.9 Type 2 diabetes mellitus without complications; Z79.4 Long term (current) use of insulin; Z88.5 Allergy status to narcotic agent; Z20.822 Contact with and (suspected) exposure to COVID-19; Z95.818 Presence of other cardiac implants and grafts
CPT/HCPCS: 93005; 87040 ×2; 85025; 80048; 36415; 82150; 83735; 82550; 87205; 85610; 82947; 80076; 83605 ×2; 85730; 84484; 82553; 83690; 83880; 86140; 71045; 76705; U0003; J2543; J2175; J3475; J7030 ×2; J2405 ×2; 96365; 96366; 96367; 96375; 99285; J2270